=== PATIENT | female | born 2000 | race Caucasian/White ===

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

== ENCOUNTER → 2018-12-23 | Outpatient (CLI) | payer BC, OTHER ==
[2018-12-23 15:30] LABS: ABSOLUTE EOSINOPHILS # (AUTO) 0.1 10^3/uL (0.0-0.6); ABSOLUTE LYMPHOCYTES (AUTO) 2.7 10^3/uL (0.5-4.7); ABSOLUTE MONOCYTES (AUTO) 0.7 10^3/uL (0.1-1.4); ABSOLUTE NEUT (AUTO) 4.6 10^3/uL (1.7-8.2); BASOPHILS % (AUTO) 0.2 % (0-2); EOSINOPHILS % (AUTO) 1.3 % (0-6); HEMATOCRIT 40.8 % (36.0-47.0); HEMOGLOBIN 13.5 g/dL (12.0-15.5); LYMPHOCYTES % (AUTO) 33.2 % (13-45); MEAN CORPUSCULAR HEMOGLOBIN 28.6 pg (27.0-33.4); MEAN CORPUSCULAR HGB CONC 33.1 g/dL (32.0-36.0); MEAN CORPUSCULAR VOLUME 87 fl (80-97); MONOCYTES % (AUTO) 8.2 % (3-13); PLATELET COUNT 316 10^3/uL (150-450); RED BLOOD COUNT 4.72 10^6/uL (3.72-5.28); RED CELL DISTRIBUTION WIDTH 12.9 % (11.5-14.0); SEGMENTED NEUTROPHILS % (AUTO) 57.1 % (42-78); TOTAL CELLS COUNTED % (AUTO) 100 %
[2018-12-23 15:49] LABS: ALANINE AMINOTRANSFERASE 18 U/L (9-52); ALBUMIN 4.3 g/dL (3.5-5.0); ALKALINE PHOSPHATASE 44 U/L (38-126); ANION GAP 9 (5-19); ASPARTATE AMINO TRANSFERASE 20 U/L (14-36); BILIRUBIN,DIRECT 0.2 mg/dL (0.0-0.4); BILIRUBIN,TOTAL 1.3 mg/dL (0.2-1.3); BLOOD UREA NITROGEN 5 mg/dL (7-20); CALCIUM 9.9 mg/dL (8.4-10.2); CARBON DIOXIDE 25 mmol/L (22-30); CHLORIDE 105 mmol/L (98-107); GLUCOSE 113 mg/dL (75-110); POTASSIUM 4.4 mmol/L (3.6-5.0); TOTAL PROTEIN 6.7 g/dL (6.3-8.2)
[2018-12-25 06:37] LABS: HEPATITS B SURFACE ANTIGEN Negative (Negative)
[2018-12-25 08:30] LABS: HEPATITIS C VIRUS ANTIBODY <0.1 s/co ratio (0.0-0.9)
== END ==
LOC: OD 14:24
PROVIDERS: ATTEND Physician Assistant
DX: L40.0 Psoriasis vulgaris (principal); Z79.899 Other long term (current) drug therapy
CPT/HCPCS: 36415; 80053; 80074; 85025; 86480

== ENCOUNTER 2019-01-03 17:55 | Emergency (ER) | payer BC, OTHER ==
[2019-01-03] MEDS ORDERED: ACETAMINOPHEN 325 MG TABLET PO ONE (18:41)
--- NOTE | 2019-01-03 18:55 | ER Document Report ---
HPI - HPI Patient complains to provider of: Bilateral flank pain Time Seen by Provider: 01/03/19 18:31 Onset: This morning Onset/Duration: Sudden Quality of pain: Achy Severity: Moderate Pain Level: 3 Context: This 18-year-old female presents emergency department with complaints of low back pain. She reports when she woke up her back was hurting. She is taken ibuprofen with throughout relief of symptoms. Reports pain when she moves. Denies fever vomiting diarrhea. Denies pain with void. Denies vaginal discharge. Denies trauma. Reports she just sat around watch movies all day yesterday. Denies trauma. Denies past medical history of injury to the back. Patient reports family history of kidney stones. Patient reports she is e xperience some vaginal spotting. Reports she went to the urgent care prior to arrival and mentioned that she felt some numbness around the top of her legs and they sent her here. Patient denies numbness at this time. Associated Symptoms: None Exacerbated by: Movement Relieved by: Denies Similar symptoms previously: No Recently seen / treated by doctor: No - CONSTITUTIONAL Constitutional: DENIES: Fever, Chills - URINARY Urinary: REPORTS: Frequency - REPRODUCTIVE Reproductive: DENIES: : Past Medical History - General Information source: Patient Last Menstrual Period: Patient is unsure - Social History Smoking Status: Never Smoker Cigarette use (# per day): No Frequency of alcohol use: None Drug Abuse: None Family History: None, Other - kidney stones Patient has suicidal ideation: No Patient has homicidal ideation: No - Past Medical History Cardiac Medical History: Denies: Hx Coronary Artery Disease, Hx Heart Attack, Hx Hypertension Pulmonary Medical History: Reports: Hx Asthma - exercised induced Denies: Hx Bronchitis, Hx COPD, Hx Pneumonia Neurological Medical History: Denies: Hx Cerebrovascular Accident, Hx Seizures Renal/ Medical History: Denies: Hx Peritoneal Dialysis Musculoskeletal Medical History: Denies Hx Arthritis Surgical Hx: Negative - Immunizations Hx Diphtheria, Pertussis, Tetanus Vaccination: Yes Vertical Provider Document - CONSTITUTIONAL Agree With Documented VS: Yes Exam Limitations: No Limitations General Appearance: WD/WN, No Apparent Distress - Nontoxic looking - INFECTION CONTROL TRAVEL OUTSIDE OF THE [place] IN LAST 30 DAYS: No - HEENT HEENT: Atraumatic, Normocephalic - NECK Neck: Supple - RESPIRATORY Respiratory: Breath Sounds Normal, No Respiratory Distress - CARDIOVASCULAR Cardiovascular: Regular Rate - GI/ABDOMEN Gastrointestinal: Abdomen Soft - BACK Back: Normal Inspection - No obvious deformity patient denies pain with palpation. Reports it is deep pain and hurts when she moves. - MUSCULOSKELETAL/EXTREMETIES Musculoskeletal/Extremeties: MAADRIANA, FROM, Non-Tender - NEURO Level of Consciousness: Awake, Alert, Appropriate Motor/Sensory: No Motor Deficit - DERM Integumentary: Warm, Dry Course - Re-evaluation Re-evalutation: 01/03/19 18:53 This 18-year-old female presents to the emergency department with bilateral flank pain. Patient reports low back pain. Denies injury. Denies history of kidney stones. Patient reports she just woke up with her back hurting. Denies fever vomiting diarrhea. Denies pain with void. Reports the back is not painful to touch but hurts when she moves. 01/03/19 19:51 Urinalysis negative no blood patient is not . We will treat with muscle relaxers and Motrin. Patient instructed to follow-up with primary care for continued pain. She verbalized understanding to all instructions. Patient was instructed if symptoms become worse. She started having a fever. Increased muscle pain back pain to return the emergency department for blood work and exams as indicated. She verbalized understanding to all instructions. Urine Color COLORLESS 01/03/19 18:42 Urine Appearance CLEAR 01/03/19 18:42 Urine pH 7.0 (5.0-9.0) 01/03/19 18:42 Ur Specific [place] 1.002 01/03/19 18:42 Urine Protein NEGATIVE mg/dL (NEGATIVE) 01/03/19 18:42 Urine Glucose (UA) NEGATIVE mg/dL (NEGATIVE) 01/03/19 18:42 Urine Ketones NEGATIVE mg/dL (NEGATIVE) 01/03/19 18:42 Urine Blood NEGATIVE (NEGATIVE) 01/03/19 18:42 Urine Nitrite NEGATIVE (NEGATIVE) 01/03/19 18:42 Ur Leukocyte Esterase NEGATIVE (NEGATIVE) 01/03/19 18:42 Urine WBC (Auto) 1 /HPF 01/03/19 18:42 Urine RBC (Auto) 1 /HPF 01/03/19 18:42 - Vital Signs Vital signs: Temp Pulse Resp BP Pulse Ox 98.9 F 100 17 127/84 H 97 01/03/19 17:59 01/03/19 17:59 01/03/19 17:59 01/03/19 17:59 01/03/19 17:59 Discharge - Discharge Clinical Impression: Flank pain Low back pain Qualifiers: Chronicity: unspecified Back pain laterality: bilateral Sciatica presence: without sciatica Qualified Code(s): M54.5 - Low back pain Condition: Stable Disposition: HOME, SELF-CARE Instructions: Flank Pain ([facility]), Use of [id number] Ibuprofen ([facility]), Low Back Pain ([facility]), Muscle Relaxers ([facility]) Additional Instructions: *You have been evaluated for back pain, flank pain *Take medication as prescribed, take motrin as indicated *Follow up with a primary care provider within one week for recheck *Return to ED for worsening condition, changes, needs Monitor your blood pressure. Your blood pressure was elevated today. This may be because you were anxious, in pain or because you need medication. It is important to follow up with your primary care provider for full evaluation. Prescriptions: Cyclobenzaprine HCl [Flexeril 5 mg Tablet] 5 mg PO TID #15 tablet Forms: Elevated Blood Pressure Referrals: JAELYN PALMER DO [Primary Care Provider] - Follow up in 3-5 days
[2019-01-03 19:13] LABS: APPEARANCE,URINE CLEAR; BILIRUBIN,URINE NEGATIVE (NEGATIVE); COLOR,URINE COLORLESS; GLUCOSE, URINE NEGATIVE (NEGATIVE); KETONES,URINE NEGATIVE (NEGATIVE); LEUKOCYTE ESTERASE,URINE NEGATIVE (NEGATIVE); NITRITE,URINE NEGATIVE (NEGATIVE); PROTEIN,URINE NEGATIVE (NEGATIVE); URINE SPECIFIC GRAVITY 1.002; UROBILINOGEN,URINE NEGATIVE mg/dL (<2.0)
[2019-01-03] MEDS ORDERED: CYCLOBENZAPRINE HCL 10 MG TABLET PO ONE (19:50)
[2019-01-03 19:59] VITALS: BP 131/87
== END 2019-01-03 19:59 | disposition home or self-care (01) ==
LOC: ER 17:55
DX: M54.5 Low back pain (principal); R10.9 Unspecified abdominal pain; R35.0 Frequency of micturition; J45.909 Unspecified asthma, uncomplicated
CPT/HCPCS: 81001; 81025; 87086; 99284

== ENCOUNTER → 2019-10-12 | Outpatient (CLI) | payer BC, OTHER ==
[2019-10-12 15:43] LABS: ABSOLUTE EOSINOPHILS # (AUTO) 0.4 10^3/uL (0.0-0.6); ABSOLUTE LYMPHOCYTES (AUTO) 2.8 10^3/uL (0.5-4.7); ABSOLUTE MONOCYTES (AUTO) 0.7 10^3/uL (0.1-1.4); ABSOLUTE NEUT (AUTO) 4.2 10^3/uL (1.7-8.2); BASOPHILS % (AUTO) 0.3 % (0-2); EOSINOPHILS % (AUTO) 4.7 % (0-6); HEMATOCRIT 39.7 % (36.0-47.0); HEMOGLOBIN 13.5 g/dL (12.0-15.5); MEAN CORPUSCULAR HEMOGLOBIN 29.9 pg (27.0-33.4); MEAN CORPUSCULAR HGB CONC 34.1 g/dL (32.0-36.0); MEAN CORPUSCULAR VOLUME 88 fl (80-97); MONOCYTES % (AUTO) 8.6 % (3-13); PLATELET COUNT 297 10^3/uL (150-450); RED BLOOD COUNT 4.53 10^6/uL (3.72-5.28); SEGMENTED NEUTROPHILS % (AUTO) 51.4 % (42-78); TOTAL CELLS COUNTED % (AUTO) 100 %; WHITE BLOOD COUNT 8.1 10^3/uL (4.0-10.5)
[2019-10-12 16:08] LABS: ALBUMIN 4.4 g/dL (3.5-5.0); ALKALINE PHOSPHATASE 44 U/L (38-126); ANION GAP 9 (5-19); ASPARTATE AMINO TRANSFERASE 20 U/L (14-36); BILIRUBIN,TOTAL 1.3 mg/dL (0.2-1.3); BLOOD UREA NITROGEN 6 mg/dL (7-20); CALCIUM 9.5 mg/dL (8.4-10.2); CARBON DIOXIDE 26 mmol/L (22-30); CHLORIDE 102 mmol/L (98-107); GLUCOSE 127 mg/dL (75-110); POTASSIUM 4.4 mmol/L (3.6-5.0); TOTAL PROTEIN 7.3 g/dL (6.3-8.2)
== END ==
LOC: OD 15:00
PROVIDERS: ATTEND Nurse Practitioner Acute Care
DX: R50.9 Fever, unspecified (principal); R53.83 Other fatigue
CPT/HCPCS: 36415; 80053; 84443; 85025